=== PATIENT | female | born 1995 | race Caucasian/White ===

== ENCOUNTER 2016-10-21 16:04 | Emergency (ER) | payer MEDICAID ==
[~2016-10-21] VITALS: Ht 167.6 cm; Wt 57.0 kg
[2016-10-21] MEDS ORDERED: SODIUM CHLORIDE FLUSH 3 ML SYR IV PRN (16:25)
[2016-10-21] MEDS ORDERED: ONDANSETRON 2 MG/ML (Z0FRAN) 2 ML VIAL IV ONE (16:25)
[2016-10-21] MEDS ORDERED: SODIUM CHLORIDE FLUSH 10 ML SYR IV PRN (16:25)
[2016-10-21 16:50] LABS: MEAN CORPUSCULAR HEMOGLOBIN 29.9 PG (26.0-34.0); MEAN CORPUSCULAR VOLUME 84 FL (80-100); MEAN PLATELET VOLUME 11.8 FL (6.0-9.5); PLATELET COUNT 176 10^3uL (150-450); WHITE BLOOD COUNT 14.46 10^3uL (4.0-11.0)
[2016-10-21 16:57] LABS: MEAN CORPUSCULAR HGB CONC 35.6 g/dL (31.0-37.0)
[2016-10-21 17:01] LABS: BILIRUBIN,URINE Negative (Negative); COLOR,URINE Yellow; GLUCOSE, URINE (UA) Negative (Negative); LEUKOCYTE ESTERASE ,URINE 1+ (Negative); UROBILINOGEN,URINE 0.2 mg/dL (0.2-1.0)
[2016-10-21 17:03] LABS: BAND NEUTROPHILS % 4 % (0-6); EOSINOPHILS % 0 % (0-4); LYMPHOCYTES # 0.6 #; MONOCYTES # 0.1 #; MONOCYTES % 1 % (3-11); RBC MORPH NORMAL (NORMAL); SEGMENTED NEUTROPHILS % 91 % (51-67); TOTAL CELLS COUNTED 100
[2016-10-21 17:05] LABS: ALBUMIN 3.5 g/dL (3.4-5.0); ANION GAP 14.5 MEQ/L (3-15); TOTAL PROTEIN 6.8 g/dL (6.4-8.5)
[2016-10-21 17:07] LABS: CLARITY,URINE Slightly Cloudy
[2016-10-21 17:12] LABS: AMPHETAMINE SCREEN, URINE Negative (Negative); CANNABINOID SCREEN, URINE Negative (Negative); METHAMPHETAMINE SCREEN URINE S NEGATIVE (NEGATIVE); OPIATE SCREEN URINE Negative (Negative); PROPOXYPHENE STAT NEGATIVE (NEGATIVE)
[2016-10-21 17:14] LABS: URINE CENTRIFUGED VOLUME 12 mL
[2016-10-21 19:08] VITALS: BP 92/53
== END 2016-10-21 19:10 | disposition home or self-care (01) ==
LOC: EDUNIT# 16:04 → ED 16:09
DX: R11.10 Vomiting, unspecified (principal)
CPT/HCPCS: 36415; 80053; 81003; 81015; 82150; 83690; 85025; 86140; 87088; 96361; 96374; 99285; G0478; G0480; J2405; J7030; 80307; 80320; 87077; 87186; 99283